=== PATIENT | male | born 1950 | race African-American/Black ===

== ENCOUNTER 2020-12-17 04:20 | Day surgery (SDC) | payer OTHER ==
[2020-12-15 11:11] VITALS: BMI 28.5
[~2020-12-17 04:20] MED LIST: LIDOCAINE HCL 0.5% EPINEPHRINE 1:200,000 50 ML VIAL IJ ONE
[2020-12-17] MEDS ORDERED: LIDOCAINE HCL 1%, 10 MG/ML (20ML VIAL) ONE (07:18)
[2020-12-17] MEDS ORDERED: LIDOCAINE HCL/PF 1% SDV 5ML VIAL ONE (07:20)
[2020-12-17] MEDS ORDERED: PROPOFOL 20 ML ONE (07:30)
[2020-12-17] MEDS ORDERED: MIDAZOLAM HCL 2 MG/2 ML SINGLE DOSE VIAL ONE (07:30)
[2020-12-17] MEDS ORDERED: SUCCINYLCHOLINE CHLORIDE 200 MG/10 ML SYRINGE ONE (07:30)
[2020-12-17] MEDS ORDERED: ceFAZolin SODIUM 1 GM VIAL ONE (08:19)
[2020-12-17] MEDS ORDERED: ceFAZolin SODIUM 1 GM VIAL IVPB ONE (08:19)
[2020-12-17] MEDS ORDERED: LIDOCAINE HCL 0.5% EPINEPHRINE 1:200,000 50 ML VIAL IJ ONE (08:41)
[2020-12-17 11:09] VITALS: BP 166/64; PULSE 89; TEMP 97.7
[2020-12-17] MEDS ORDERED: ACETAMINOPHEN 325 MG TABLET (FP) PO PRN (11:15)
[2020-12-17] MEDS ORDERED: ONDANSETRON 4 MG/2 ML VIAL IVPUSH PRN (11:15)
[2020-12-17] MEDS ORDERED: LACTATED RINGERS SOLUTION 1,000 ML IV SCH (11:15)
[2020-12-17] MEDS ORDERED: oxyCODONE HCL 5 MG TABLET PO PRN (11:15)
== END 2020-12-17 11:08 | disposition home or self-care (01) ==
LOC: JASU-SURG 04:20
PROVIDERS: ATTEND Surgery
PROC: 0JB70ZZ Excision of Back Subcutaneous Tissue and Fascia, Open Approach (ICD-10-PCS; principal; 2020-12-17 08:00)
DX: L72.3 Sebaceous cyst (principal)
CPT/HCPCS: 88304-TC

== ENCOUNTER 2021-07-28 12:58 | Emergency (ER) | payer OTHER ==
[2021-07-28 13:10] VITALS: TEMP 99.5; BMI 28.8
[2021-07-28] MEDS ORDERED: methylPREDNISolone NA SUCC 40 MG/1 ML VIAL IVPUSH ONE (14:28)
[2021-07-28] MEDS ORDERED: methylPREDNISolone NA SUCC 40 MG/1 ML VIAL ONE ×2 (14:34→14:36)
[2021-07-28] MEDS ORDERED: ALBUTEROL SO4 2.5/IPRATROPIUM 0.5 INH SOL 3 ML VIAL.NEB. NEB ONE (14:34)
[2021-07-28] MEDS: ALBUTEROL SO4 2.5/IPRATROPIUM 0.5 INH SOL 3 ML VIAL.NEB. NEB SCH ×2 (15:00→15:34)
[2021-07-28 15:21] LABS: BASO % 0.3 % (0-2.0); EOS % 0.1 % (0-4.5); HEMATOCRIT 34.9 % (35.4-49); HEMOGLOBIN 11.7 GM/dL (11.7-16.9); LYMPH % 9.3 % (8-40); MCH 31.8 pg (25.7-33.7); MCHC 33.5 g/dl (32.0-35.9); MEAN PLT VOLUME 8.2 fl (7.5-11.1); MONO % 4.6 % (3.8-10.2); NEUT % 85.7 % (42.8-82.8); PLATELET COUNT 252 10^3/uL (134-434); RBC 3.67 M/mm3 (4.00-5.60); RDW 15.3 % (11.9-15.9); WHITE BLOOD COUNT 16.5 K/mm3 (4.0-10.0)
[2021-07-28 15:29] LABS: INR 1.11 (0.83-1.09)
[2021-07-28 15:31] LABS: ACTIVATED PTT 26.8 SECONDS (25.2-36.5)
[2021-07-28 15:53] LABS: CALCIUM 9.6 mg/dL (8.5-10.1)
[2021-07-28 15:54] LABS: ALBUMIN 3.6 g/dl (3.4-5.0); MAGNESIUM 2.2 mg/dL (1.8-2.4)
[2021-07-28 15:57] LABS: CREATININE 1.2 mg/dL (0.55-1.3)
[2021-07-28 15:58] LABS: BILIRUBIN,TOTAL 0.5 mg/dL (0.2-1); TOT PROT 7.6 g/dl (6.4-8.2)
[2021-07-28 16:13] LABS: BLOOD UREA NITROGEN 16.6 mg/dL (7-18)
[2021-07-28 18:32] VITALS: BP 136/70; PULSE 92
== END 2021-07-28 18:32 | disposition home or self-care (01) ==
LOC: JER 12:58
PROC: 3E033GC Introduction of Other Therapeutic Substance into Peripheral Vein, Percutaneous Approach (ICD-10-PCS; principal; 2021-07-28)
PROC: 3E0F7GC Introduction of Other Therapeutic Substance into Respiratory Tract, Via Natural or Artificial Opening (ICD-10-PCS; 2021-07-28)
DX: R05.9 Cough, unspecified (principal)
CPT/HCPCS: 36415; 71045-TC-FY; 71275-TC; 80053; 82550; 82553; 83735; 84484; 85025; 85610; 85730; 87804; 87807; 93005; 93010; 99285-25; C9803; Q9967; U0003; U0005

== ENCOUNTER 2021-07-30 11:57 | Inpatient (IN) | payer OTHER ==
[2021-07-30 12:23] VITALS: BMI 28.8
[2021-07-30 13:14] LABS: BASO % 0.6 % (0-2.0); EOS % 0.2 % (0-4.5); HEMATOCRIT 32.7 % (35.4-49); HEMOGLOBIN 10.8 GM/dL (11.7-16.9); LYMPH % 8.7 % (8-40); MCH 31.7 pg (25.7-33.7); MCHC 33.1 g/dl (32.0-35.9); MEAN CELL VOLUME 95.7 fl (80-96); MEAN PLT VOLUME 8.3 fl (7.5-11.1); MONO % 3.5 % (3.8-10.2); PLATELET COUNT 248 10^3/uL (134-434); RBC 3.42 M/mm3 (4.00-5.60); RDW 15.6 % (11.9-15.9)
[2021-07-30 13:29] LABS: CHLORIDE 110 mmol/L (98-107); SODIUM 143 mmol/L (136-145)
[2021-07-30] MEDS ORDERED: methylPREDNISolone NA SUCC 125 MG/2 ML VIAL IVPUSH ONE (13:30)
[2021-07-30] MEDS ORDERED: ALBUTEROL SO4 HFA INHALER IH ONE ×2 (13:30→15:44)
[2021-07-30 13:31] LABS: CALCIUM 9.5 mg/dL (8.5-10.1)
[2021-07-30 13:32] LABS: ALBUMIN 3.3 g/dl (3.4-5.0); ANION GAP 8 MMOL/L (8-16); BLOOD UREA NITROGEN 35.8 mg/dL (7-18); CO2 24 mmol/L (21-32); GLUCOSE,RANDOM 141 mg/dL (74-106)
[2021-07-30 13:35] LABS: CREATININE 1.3 mg/dL (0.55-1.3); SGOT/AST 15 U/L (15-37); SGPT/ALT 22 U/L (13-61)
[2021-07-30 13:36] LABS: BILIRUBIN,TOTAL 0.2 mg/dL (0.2-1); TOT PROT 7.7 g/dl (6.4-8.2)
[2021-07-30 13:38] LABS: ALK PHOS 83 U/L (45-117)
[2021-07-30] MEDS ORDERED: ASPIRIN 81 MG CHEWABLE TABLETS PO ONE (14:18)
[2021-07-30] MEDS ORDERED: methylPREDNISolone NA SUCC 125 MG/2 ML VIAL ONE (15:44)
[2021-07-30] MEDS ORDERED: ASPIRIN 81 MG CHEWABLE TABLETS ONE (15:44)
[2021-07-30] MEDS ORDERED: ATORVASTATIN CA 10 MG TABLET (FP) ONE (23:10)
[2021-07-30] MEDS ORDERED: hydrALAZINE HCL 25 MG TABLET (FP) ONE (23:10)
[2021-07-30] MEDS ORDERED: TAMSULOSIN HCL 0.4 MG CAP ONE (23:10)
[2021-07-30] MEDS ORDERED: MONTELUKAST NA 10 MG TABLET ONE (23:10)
[2021-07-30] MEDS: hydrALAZINE HCL 25 MG TABLET (FP) PO SCH (23:29)
[2021-07-30] MEDS: ATORVASTATIN CA 10 MG TABLET (FP) PO SCH (23:29)
[2021-07-30] MEDS: MONTELUKAST NA 10 MG TABLET PO SCH (23:29)
[2021-07-30] MEDS: TAMSULOSIN HCL 0.4 MG CAP PO SCH (23:29)
[2021-07-31 00:53] LABS: CHOLESTEROL 157 mg/dL (50-200); TRIGLYCERIDES 123 mg/dL (0-150)
[2021-07-31 00:54] LABS: LDL CHOLESTEROL (ONLY SJRH) 69 mg/dL (5-100)
[2021-07-31 00:55] LABS: HDL CHOLESTEROL 61 mg/dL (40-60)
[2021-07-31 00:57] LABS: N-TERMINAL BNP 81.9 pg/ml (5-125)
[2021-07-31 08:55] LABS: BASO % 0.4 % (0-2.0); EOS % 0.1 % (0-4.5); HEMATOCRIT 29.8 % (35.4-49); HEMOGLOBIN 10.2 GM/dL (11.7-16.9); LYMPH % 28.4 % (8-40); MCH 32.6 pg (25.7-33.7); MCHC 34.1 g/dl (32.0-35.9); MEAN CELL VOLUME 95.7 fl (80-96); MEAN PLT VOLUME 8.1 fl (7.5-11.1); MONO % 11.4 % (3.8-10.2); NEUT % 59.7 % (42.8-82.8); PLATELET COUNT 251 10^3/uL (134-434); RBC 3.12 M/mm3 (4.00-5.60); WHITE BLOOD COUNT 9.6 K/mm3 (4.0-10.0)
[2021-07-31 09:09] LABS: CHLORIDE 107 mmol/L (98-107); SODIUM 141 mmol/L (136-145)
[2021-07-31 09:12] LABS: CALCIUM 9.4 mg/dL (8.5-10.1)
[2021-07-31 09:13] LABS: ANION GAP 6 MMOL/L (8-16); BLOOD UREA NITROGEN 29.8 mg/dL (7-18); CO2 28 mmol/L (21-32); GLUCOSE,RANDOM 88 mg/dL (74-106)
[2021-07-31 09:16] LABS: CREATININE 1.1 mg/dL (0.55-1.3); SGOT/AST 15 U/L (15-37); SGPT/ALT 20 U/L (13-61)
[2021-07-31 09:17] LABS: BILIRUBIN,TOTAL 0.2 mg/dL (0.2-1)
[2021-07-31 09:18] LABS: TOT PROT 7.1 g/dl (6.4-8.2)
[2021-07-31 09:19] LABS: ALK PHOS 68 U/L (45-117)
[2021-07-31 09:57] LABS: TRIGLYCERIDES 107 mg/dL (0-150)
[2021-07-31] MEDS ORDERED: amLODIPine BESYLATE 5 MG TABLET (FP) ONE (11:19)
[2021-07-31] MEDS ORDERED: hydrALAZINE HCL 25 MG TABLET (FP) ONE (11:19)
[2021-07-31] MEDS ORDERED: ASPIRIN 81 MG CHEWABLE TABLETS ONE (11:19)
[2021-07-31] MEDS ORDERED: ISOSORBIDE MONONITRATE 60 MG TAB.SR.24H (FP) PO ONE (11:20)
[2021-07-31] MEDS ORDERED: SPIRONOLACTONE 25 MG TABLET ONE (11:20)
[2021-07-31] MEDS ORDERED: TAMSULOSIN HCL 0.4 MG CAP ONE (11:20)
[2021-07-31] MEDS ORDERED: CLOPIDOGREL BISULFATE 75 MG TABLET (FP) ONE (11:20)
[2021-07-31] MEDS ORDERED: ENOXAPARIN NA (PORCINE) 40 MG/0.4 ML DISP.SYRIN SQ ONE (11:21)
[2021-07-31] MEDS: SPIRONOLACTONE 25 MG TABLET PO SCH (11:35)
[2021-07-31] MEDS: TAMSULOSIN HCL 0.4 MG CAP PO SCH ×2 (11:35→21:48)
[2021-07-31] MEDS: ENOXAPARIN NA (PORCINE) 40 MG/0.4 ML DISP.SYRIN SQ SCH (11:35)
[2021-07-31] MEDS: ASPIRIN 81 MG CHEWABLE TABLETS PO SCH (11:35)
[2021-07-31] MEDS: amLODIPine BESYLATE 5 MG TABLET (FP) PO SCH (11:35)
[2021-07-31] MEDS: ISOSORBIDE MONONITRATE 60 MG TAB.SR.24H (FP) PO SCH (11:35)
[2021-07-31] MEDS: hydrALAZINE HCL 25 MG TABLET (FP) PO SCH ×2 (11:35→21:48)
[2021-07-31] MEDS: CLOPIDOGREL BISULFATE 75 MG TABLET (FP) PO SCH (11:36)
[2021-07-31] MEDS: BUDESONIDE/FORMETEROL FUMARATE 160/4.5 mcg INHALER IH SCH ×2 (11:37→22:16)
[2021-07-31] MEDS: methylPREDNISolone NA SUCC 40 MG/1 ML VIAL IVPUSH SCH ×2 (13:20→21:48)
[2021-07-31] MEDS ORDERED: cefTRIAXone SODIUM 1 GM VIAL ONE (13:33)
[2021-07-31] MEDS ORDERED: DEXTROSE 5%-WATER - 50 ML IVPB ONE (13:34)
[2021-07-31] MEDS: AZITHROMYCIN IVPB 500 MG/250 ML BAG IVPB SCH (13:40)
[2021-07-31] MEDS: CEFTRIAXONE 1 GM in DEXTROSE 5%-WATER - 50 ML IVPB SCH (15:20)
[2021-07-31] MEDS: NICOTINE 21 MG/24 HOURS TOPICAL PATCH TD SCH (21:47)
[2021-07-31] MEDS: ATORVASTATIN CA 10 MG TABLET (FP) PO SCH (21:48)
[2021-07-31] MEDS: MONTELUKAST NA 10 MG TABLET PO SCH (21:48)
[2021-08-01 07:09] LABS: HEMOGLOBIN 9.1 GM/dL (11.7-16.9); MCH 32.4 pg (25.7-33.7); MCHC 33.6 g/dl (32.0-35.9); MEAN CELL VOLUME 96.4 fl (80-96); MEAN PLT VOLUME 8.6 fl (7.5-11.1); PLATELET COUNT 234 10^3/uL (134-434); RDW 15.1 % (11.9-15.9); WHITE BLOOD COUNT 7.8 K/mm3 (4.0-10.0)
[2021-08-01 07:34] LABS: BLOOD UREA NITROGEN 27.1 mg/dL (7-18); CALCIUM 8.2 mg/dL (8.5-10.1)
[2021-08-01 07:35] LABS: ALBUMIN 2.5 g/dl (3.4-5.0); CREATININE 0.9 mg/dL (0.55-1.3)
[2021-08-01 07:37] LABS: TOT PROT 6.1 g/dl (6.4-8.2)
[2021-08-01 08:08] LABS: BILIRUBIN,TOTAL 0.1 mg/dL (0.2-1)
[2021-08-01] MEDS ORDERED: cefTRIAXone SODIUM 1 GM VIAL ONE ×2 (08:53→09:03)
[2021-08-01] MEDS ORDERED: PT OWN MED DRAWER 7, Y5N ONE (08:53)
[2021-08-01] MEDS ORDERED: DEXTROSE 5%-WATER - 50 ML IVPB ONE (08:54)
[2021-08-01 08:58] LABS: ANISOCYTOSIS 1+; MACROCYTOSIS 0; OVALOCYTE 1+; PLATELET ESTIMATE NORMAL
[2021-08-01] MEDS: amLODIPine BESYLATE 5 MG TABLET (FP) PO SCH (09:23)
[2021-08-01] MEDS: methylPREDNISolone NA SUCC 40 MG/1 ML VIAL IVPUSH SCH ×2 (09:23→18:53)
[2021-08-01] MEDS: ISOSORBIDE MONONITRATE 60 MG TAB.SR.24H (FP) PO SCH (09:23)
[2021-08-01] MEDS: CLOPIDOGREL BISULFATE 75 MG TABLET (FP) PO SCH (09:24)
[2021-08-01] MEDS: SPIRONOLACTONE 25 MG TABLET PO SCH (09:24)
[2021-08-01] MEDS: ASPIRIN 81 MG CHEWABLE TABLETS PO SCH (09:24)
[2021-08-01] MEDS: TAMSULOSIN HCL 0.4 MG CAP PO SCH ×2 (09:24→21:09)
[2021-08-01] MEDS: ENOXAPARIN NA (PORCINE) 40 MG/0.4 ML DISP.SYRIN SQ SCH (09:24)
[2021-08-01] MEDS: NICOTINE 21 MG/24 HOURS TOPICAL PATCH TD SCH (09:24)
[2021-08-01] MEDS: hydrALAZINE HCL 25 MG TABLET (FP) PO SCH ×2 (09:24→21:09)
[2021-08-01] MEDS: BUDESONIDE/FORMETEROL FUMARATE 160/4.5 mcg INHALER IH SCH ×2 (09:25→21:09)
[2021-08-01] MEDS: AZITHROMYCIN IVPB 500 MG/250 ML BAG IVPB SCH (11:32)
[2021-08-01] MEDS: CEFTRIAXONE 1 GM in DEXTROSE 5%-WATER - 50 ML IVPB SCH (11:33)
[2021-08-01] MEDS: ALBUTEROL SO4 2.5/IPRATROPIUM 0.5 INH SOL 3 ML VIAL.NEB. NEB SCH (20:15)
[2021-08-01] MEDS: MONTELUKAST NA 10 MG TABLET PO SCH (21:09)
[2021-08-01] MEDS: ATORVASTATIN CA 10 MG TABLET (FP) PO SCH (21:09)
[2021-08-02] MEDS: BICALUTAMIDE 50 MG TABLET (FP) PO SCH ×2 (00:19→00:35)
[2021-08-02] MEDS: methylPREDNISolone NA SUCC 40 MG/1 ML VIAL IVPUSH SCH ×3 (02:34→18:27)
[2021-08-02] MEDS: ALBUTEROL SO4 2.5/IPRATROPIUM 0.5 INH SOL 3 ML VIAL.NEB. NEB SCH ×3 (07:45→20:48)
[2021-08-02] MEDS: ASPIRIN 81 MG CHEWABLE TABLETS PO SCH (09:41)
[2021-08-02] MEDS: TAMSULOSIN HCL 0.4 MG CAP PO SCH ×2 (09:41→21:17)
[2021-08-02] MEDS: SPIRONOLACTONE 25 MG TABLET PO SCH (09:41)
[2021-08-02] MEDS: hydrALAZINE HCL 25 MG TABLET (FP) PO SCH ×2 (09:41→21:17)
[2021-08-02] MEDS: ISOSORBIDE MONONITRATE 60 MG TAB.SR.24H (FP) PO SCH (09:42)
[2021-08-02] MEDS: ENOXAPARIN NA (PORCINE) 40 MG/0.4 ML DISP.SYRIN SQ SCH (09:42)
[2021-08-02] MEDS: BUDESONIDE/FORMETEROL FUMARATE 160/4.5 mcg INHALER IH SCH ×2 (09:43→21:17)
[2021-08-02] MEDS: CLOPIDOGREL BISULFATE 75 MG TABLET (FP) PO SCH (09:43)
[2021-08-02] MEDS: amLODIPine BESYLATE 5 MG TABLET (FP) PO SCH (09:43)
[2021-08-02] MEDS: NICOTINE 21 MG/24 HOURS TOPICAL PATCH TD SCH (09:43)
[2021-08-02] MEDS: AZITHROMYCIN IVPB 500 MG/250 ML BAG IVPB SCH (09:44)
[2021-08-02] MEDS: ENZALUTAMIDE 40 MG TABLET PO SCH (12:35)
[2021-08-02] MEDS: MONTELUKAST NA 10 MG TABLET PO SCH (21:17)
[2021-08-02] MEDS: ATORVASTATIN CA 10 MG TABLET (FP) PO SCH (21:17)
[2021-08-03] MEDS: methylPREDNISolone NA SUCC 40 MG/1 ML VIAL IVPUSH SCH ×3 (02:50→18:12)
[2021-08-03 07:24] LABS: HEMATOCRIT 22.3 % (35.4-49); HEMOGLOBIN 7.3 GM/dL (11.7-16.9); MCHC 32.7 g/dl (32.0-35.9); MEAN CELL VOLUME 94.8 fl (80-96); MEAN PLT VOLUME 8.2 fl (7.5-11.1); PLATELET COUNT 267 10^3/uL (134-434); RBC 2.35 M/mm3 (4.00-5.60); RDW 14.9 % (11.9-15.9); WHITE BLOOD COUNT 13.4 K/mm3 (4.0-10.0)
[2021-08-03] MEDS: ALBUTEROL SO4 2.5/IPRATROPIUM 0.5 INH SOL 3 ML VIAL.NEB. NEB SCH ×4 (07:41→23:48)
[2021-08-03 07:52] LABS: CALCIUM 8.5 mg/dL (8.5-10.1)
[2021-08-03 07:53] LABS: ALBUMIN 2.7 g/dl (3.4-5.0); BLOOD UREA NITROGEN 23.7 mg/dL (7-18)
[2021-08-03 07:59] LABS: BILIRUBIN,TOTAL 0.5 mg/dL (0.2-1)
[2021-08-03 08:43] LABS: ANISOCYTOSIS 2+; MACROCYTOSIS 0; PLATELET ESTIMATE NORMAL
[2021-08-03] MEDS ORDERED: REGADENOSON 0.4 MG/5 ML PRE-FILLED SYRINGE IVPUSH ONE (10:45)
[2021-08-03] MEDS: ENOXAPARIN NA (PORCINE) 40 MG/0.4 ML DISP.SYRIN SQ SCH (10:57)
[2021-08-03] MEDS: NICOTINE 21 MG/24 HOURS TOPICAL PATCH TD SCH (10:57)
[2021-08-03] MEDS: ISOSORBIDE MONONITRATE 60 MG TAB.SR.24H (FP) PO SCH (10:57)
[2021-08-03] MEDS: amLODIPine BESYLATE 5 MG TABLET (FP) PO SCH (10:58)
[2021-08-03] MEDS: CLOPIDOGREL BISULFATE 75 MG TABLET (FP) PO SCH (10:58)
[2021-08-03] MEDS: TAMSULOSIN HCL 0.4 MG CAP PO SCH ×2 (10:58→21:17)
[2021-08-03] MEDS: ASPIRIN 81 MG CHEWABLE TABLETS PO SCH (10:58)
[2021-08-03] MEDS: hydrALAZINE HCL 25 MG TABLET (FP) PO SCH ×2 (10:58→21:17)
[2021-08-03] MEDS: SPIRONOLACTONE 25 MG TABLET PO SCH (10:58)
[2021-08-03] MEDS: BUDESONIDE/FORMETEROL FUMARATE 160/4.5 mcg INHALER IH SCH ×2 (11:21→21:28)
[2021-08-03] MEDS: AZITHROMYCIN IVPB 500 MG/250 ML BAG IVPB SCH (11:21)
[2021-08-03] MEDS: ENZALUTAMIDE 40 MG TABLET PO SCH (12:58)
[2021-08-03] MEDS: ATORVASTATIN CA 10 MG TABLET (FP) PO SCH (21:17)
[2021-08-03] MEDS: MONTELUKAST NA 10 MG TABLET PO SCH (21:17)
[2021-08-04] MEDS: methylPREDNISolone NA SUCC 40 MG/1 ML VIAL IVPUSH SCH ×3 (01:17→18:08)
[2021-08-04] MEDS: ALBUTEROL SO4 2.5/IPRATROPIUM 0.5 INH SOL 3 ML VIAL.NEB. NEB SCH ×2 (07:40→20:07)
[2021-08-04 08:23] LABS: ALBUMIN 2.7 g/dl (3.4-5.0); CALCIUM 9.2 mg/dL (8.5-10.1)
[2021-08-04 08:24] LABS: BLOOD UREA NITROGEN 24.7 mg/dL (7-18)
[2021-08-04 08:27] LABS: CREATININE 0.9 mg/dL (0.55-1.3); HEMATOCRIT 22.4 % (35.4-49); HEMOGLOBIN 7.6 GM/dL (11.7-16.9); MCH 31.9 pg (25.7-33.7); MEAN CELL VOLUME 93.8 fl (80-96); MEAN PLT VOLUME 8.1 fl (7.5-11.1); PLATELET COUNT 269 10^3/uL (134-434); RBC 2.39 M/mm3 (4.00-5.60); RDW 15.4 % (11.9-15.9); WHITE BLOOD COUNT 10.1 K/mm3 (4.0-10.0)
[2021-08-04 08:28] LABS: TOT PROT 6.1 g/dl (6.4-8.2)
[2021-08-04] MEDS ORDERED: PANTOPRAZOLE SODIUM 80 MG in SODIUM CHLORIDE 100 ML IVPB SCH (09:15)
[2021-08-04] MEDS: ISOSORBIDE MONONITRATE 60 MG TAB.SR.24H (FP) PO SCH (09:22)
[2021-08-04] MEDS: SPIRONOLACTONE 25 MG TABLET PO SCH (09:22)
[2021-08-04] MEDS: TAMSULOSIN HCL 0.4 MG CAP PO SCH ×2 (09:22→22:32)
[2021-08-04] MEDS: hydrALAZINE HCL 25 MG TABLET (FP) PO SCH ×2 (09:22→22:33)
[2021-08-04] MEDS: amLODIPine BESYLATE 5 MG TABLET (FP) PO SCH (09:22)
[2021-08-04] MEDS: NICOTINE 21 MG/24 HOURS TOPICAL PATCH TD SCH (09:22)
[2021-08-04] MEDS: AZITHROMYCIN IVPB 500 MG/250 ML BAG IVPB SCH (09:23)
[2021-08-04] MEDS: BUDESONIDE/FORMETEROL FUMARATE 160/4.5 mcg INHALER IH SCH (09:23)
[2021-08-04 09:46] LABS: ANISOCYTOSIS 2+; CORRECTED WBC 8.02 K/mm3; MACROCYTOSIS 1+; OVALOCYTE 1+; PLATELET ESTIMATE NORMAL; TARGET CELLS 1+
[2021-08-04] MEDS: ENZALUTAMIDE 40 MG TABLET PO SCH (10:54)
[2021-08-04] MEDS: PANTOPRAZOLE SODIUM 160 MG in SODIUM CHLORIDE 290 ML IVPB SCH (11:00)
[2021-08-04 17:04] LABS: BASO % 0.4 % (0-2.0); HEMATOCRIT 21.7 % (35.4-49); HEMOGLOBIN 7.2 GM/dL (11.7-16.9); LYMPH % 23.3 % (8-40); MCH 31.1 pg (25.7-33.7); MCHC 33.1 g/dl (32.0-35.9); MEAN CELL VOLUME 93.9 fl (80-96); MEAN PLT VOLUME 7.9 fl (7.5-11.1); MONO % 6.1 % (3.8-10.2); NEUT % 70.2 % (42.8-82.8); PLATELET COUNT 281 10^3/uL (134-434); RBC 2.31 M/mm3 (4.00-5.60); RDW 16.1 % (11.9-15.9)
[2021-08-04 17:33] LABS: ANISOCYTOSIS 2+; MACROCYTOSIS 0; PLATELET ESTIMATE NORMAL; TARGET CELLS 1+
[2021-08-04] MEDS: ATORVASTATIN CA 10 MG TABLET (FP) PO SCH (22:32)
[2021-08-04] MEDS: MONTELUKAST NA 10 MG TABLET PO SCH (22:33)
[2021-08-05] MEDS: methylPREDNISolone NA SUCC 40 MG/1 ML VIAL IVPUSH SCH ×3 (02:00→17:26)
[2021-08-05] MEDS: BUDESONIDE/FORMETEROL FUMARATE 160/4.5 mcg INHALER IH SCH ×3 (06:29→21:09)
[2021-08-05] MEDS: ALBUTEROL SO4 2.5/IPRATROPIUM 0.5 INH SOL 3 ML VIAL.NEB. NEB SCH ×3 (07:30→20:21)
[2021-08-05 08:38] LABS: HEMOGLOBIN 8.8 GM/dL (11.7-16.9); MCH 31.3 pg (25.7-33.7); MCHC 33.7 g/dl (32.0-35.9); MEAN CELL VOLUME 92.7 fl (80-96); MEAN PLT VOLUME 8.2 fl (7.5-11.1); PLATELET COUNT 302 10^3/uL (134-434); RDW 16.4 % (11.9-15.9); WHITE BLOOD COUNT 10.8 K/mm3 (4.0-10.0)
[2021-08-05 09:02] LABS: CALCIUM 8.6 mg/dL (8.5-10.1)
[2021-08-05 09:03] LABS: ALBUMIN 2.8 g/dl (3.4-5.0); BLOOD UREA NITROGEN 23.4 mg/dL (7-18)
[2021-08-05 09:06] LABS: BILIRUBIN,TOTAL 0.4 mg/dL (0.2-1); CREATININE 0.9 mg/dL (0.55-1.3)
[2021-08-05 09:37] LABS: ANISOCYTOSIS 0; MACROCYTOSIS 1+; PLATELET ESTIMATE NORMAL
[2021-08-05] MEDS: amLODIPine BESYLATE 5 MG TABLET (FP) PO SCH (10:02)
[2021-08-05] MEDS: AZITHROMYCIN IVPB 500 MG/250 ML BAG IVPB SCH (10:02)
[2021-08-05] MEDS: TAMSULOSIN HCL 0.4 MG CAP PO SCH ×2 (10:02→21:04)
[2021-08-05] MEDS: hydrALAZINE HCL 25 MG TABLET (FP) PO SCH ×2 (10:02→21:04)
[2021-08-05] MEDS: NICOTINE 21 MG/24 HOURS TOPICAL PATCH TD SCH (10:02)
[2021-08-05] MEDS: ISOSORBIDE MONONITRATE 60 MG TAB.SR.24H (FP) PO SCH (10:02)
[2021-08-05] MEDS: SPIRONOLACTONE 25 MG TABLET PO SCH (10:02)
[2021-08-05] MEDS: ENZALUTAMIDE 40 MG TABLET PO SCH (10:03)
[2021-08-05] MEDS: LISINOPRIL 5 MG TABLET PO SCH (10:03)
[2021-08-05] MEDS: PANTOPRAZOLE SODIUM 160 MG in SODIUM CHLORIDE 290 ML IVPB SCH (11:39)
[2021-08-05] MEDS: ATORVASTATIN CA 10 MG TABLET (FP) PO SCH (21:04)
[2021-08-05] MEDS: MONTELUKAST NA 10 MG TABLET PO SCH (21:04)
[2021-08-06] MEDS: methylPREDNISolone NA SUCC 40 MG/1 ML VIAL IVPUSH SCH ×3 (01:57→17:49)
[2021-08-06] MEDS: PANTOPRAZOLE SODIUM 160 MG in SODIUM CHLORIDE 290 ML IVPB SCH ×2 (01:57→22:54)
[2021-08-06 07:02] LABS: HEMATOCRIT 24.8 % (35.4-49); HEMOGLOBIN 8.3 GM/dL (11.7-16.9); MCH 31.2 pg (25.7-33.7); MCHC 33.4 g/dl (32.0-35.9); MEAN CELL VOLUME 93.6 fl (80-96); PLATELET COUNT 330 10^3/uL (134-434); RBC 2.65 M/mm3 (4.00-5.60); RDW 17.4 % (11.9-15.9); WHITE BLOOD COUNT 12.5 K/mm3 (4.0-10.0)
[2021-08-06 07:28] LABS: ALBUMIN 2.8 g/dl (3.4-5.0); CALCIUM 7.9 mg/dL (8.5-10.1)
[2021-08-06 07:29] LABS: BLOOD UREA NITROGEN 23.9 mg/dL (7-18)
[2021-08-06 07:31] LABS: CREATININE 0.9 mg/dL (0.55-1.3)
[2021-08-06 07:33] LABS: BILIRUBIN,TOTAL 0.1 mg/dL (0.2-1)
[2021-08-06] MEDS ORDERED: PT OWN MED DRAWER 7, Y5N ONE ×2 (07:44→10:39)
[2021-08-06] MEDS: ALBUTEROL SO4 2.5/IPRATROPIUM 0.5 INH SOL 3 ML VIAL.NEB. NEB SCH ×2 (08:21→16:04)
[2021-08-06 08:50] LABS: ANISOCYTOSIS 2+; MACROCYTOSIS 0; PLATELET ESTIMATE NORMAL
[2021-08-06] MEDS: NICOTINE 21 MG/24 HOURS TOPICAL PATCH TD SCH (10:51)
[2021-08-06] MEDS: amLODIPine BESYLATE 5 MG TABLET (FP) PO SCH (10:51)
[2021-08-06] MEDS: SPIRONOLACTONE 25 MG TABLET PO SCH (10:51)
[2021-08-06] MEDS: ENZALUTAMIDE 40 MG TABLET PO SCH (10:51)
[2021-08-06] MEDS: LISINOPRIL 5 MG TABLET PO SCH (10:51)
[2021-08-06] MEDS: TAMSULOSIN HCL 0.4 MG CAP PO SCH ×2 (10:51→21:07)
[2021-08-06] MEDS: ISOSORBIDE MONONITRATE 60 MG TAB.SR.24H (FP) PO SCH (10:51)
[2021-08-06] MEDS: hydrALAZINE HCL 25 MG TABLET (FP) PO SCH ×2 (10:51→21:06)
[2021-08-06] MEDS: BUDESONIDE/FORMETEROL FUMARATE 160/4.5 mcg INHALER IH SCH ×2 (10:52→21:13)
[2021-08-06] MEDS: AZITHROMYCIN IVPB 500 MG/250 ML BAG IVPB SCH (10:52)
[2021-08-06] MEDS: ATORVASTATIN CA 10 MG TABLET (FP) PO SCH (21:06)
[2021-08-06] MEDS: MONTELUKAST NA 10 MG TABLET PO SCH (21:06)
[2021-08-07] MEDS: methylPREDNISolone NA SUCC 40 MG/1 ML VIAL IVPUSH SCH ×3 (01:40→21:47)
[2021-08-07 07:16] LABS: BASO % 0.8 % (0-2.0); EOS % 0.1 % (0-4.5); HEMATOCRIT 25.8 % (35.4-49); HEMOGLOBIN 8.5 GM/dL (11.7-16.9); LYMPH % 16.8 % (8-40); MEAN CELL VOLUME 93.9 fl (80-96); MEAN PLT VOLUME 7.9 fl (7.5-11.1); MONO % 2.8 % (3.8-10.2); NEUT % 79.5 % (42.8-82.8); PLATELET COUNT 342 10^3/uL (134-434); RBC 2.75 M/mm3 (4.00-5.60); RDW 17.4 % (11.9-15.9); WHITE BLOOD COUNT 14.8 K/mm3 (4.0-10.0)
[2021-08-07 08:14] LABS: CALCIUM 8.2 mg/dL (8.5-10.1)
[2021-08-07 08:15] LABS: BLOOD UREA NITROGEN 19.4 mg/dL (7-18)
[2021-08-07 08:17] LABS: ALBUMIN 2.8 g/dl (3.4-5.0); CREATININE 0.9 mg/dL (0.55-1.3)
[2021-08-07 08:19] LABS: BILIRUBIN,TOTAL 0.2 mg/dL (0.2-1); TOT PROT 6.3 g/dl (6.4-8.2)
[2021-08-07] MEDS: ISOSORBIDE MONONITRATE 60 MG TAB.SR.24H (FP) PO SCH (10:36)
[2021-08-07] MEDS: amLODIPine BESYLATE 5 MG TABLET (FP) PO SCH (10:36)
[2021-08-07] MEDS: TAMSULOSIN HCL 0.4 MG CAP PO SCH ×2 (10:36→21:47)
[2021-08-07] MEDS: SPIRONOLACTONE 25 MG TABLET PO SCH (10:36)
[2021-08-07] MEDS: LISINOPRIL 5 MG TABLET PO SCH (10:36)
[2021-08-07] MEDS: hydrALAZINE HCL 25 MG TABLET (FP) PO SCH ×2 (10:36→21:47)
[2021-08-07 10:37] LABS: ANISOCYTOSIS 1+; MACROCYTOSIS 0; OVALOCYTE 2+; PLATELET ESTIMATE NORMAL
[2021-08-07] MEDS: BUDESONIDE/FORMETEROL FUMARATE 160/4.5 mcg INHALER IH SCH ×2 (10:38→21:47)
[2021-08-07] MEDS: NICOTINE 21 MG/24 HOURS TOPICAL PATCH TD SCH (10:38)
[2021-08-07] MEDS: ENZALUTAMIDE 40 MG TABLET PO SCH (10:38)
[2021-08-07] MEDS: AZITHROMYCIN IVPB 500 MG/250 ML BAG IVPB SCH (10:38)
[2021-08-07] MEDS ORDERED: PT OWN MED DRAWER 7, Y5N ONE (21:05)
[2021-08-07] MEDS: MONTELUKAST NA 10 MG TABLET PO SCH (21:47)
[2021-08-07] MEDS: PANTOPRAZOLE 40 MG TABLET PO SCH (21:47)
[2021-08-07] MEDS: ATORVASTATIN CA 10 MG TABLET (FP) PO SCH (21:47)
[2021-08-08 07:06] LABS: BASO % 0.3 % (0-2.0); EOS % 0.1 % (0-4.5); HEMATOCRIT 24.6 % (35.4-49); HEMOGLOBIN 8.1 GM/dL (11.7-16.9); LYMPH % 19.8 % (8-40); MCH 31.1 pg (25.7-33.7); MCHC 32.9 g/dl (32.0-35.9); MEAN CELL VOLUME 94.5 fl (80-96); MEAN PLT VOLUME 8.2 fl (7.5-11.1); MONO % 4.3 % (3.8-10.2); NEUT % 75.5 % (42.8-82.8); PLATELET COUNT 367 10^3/uL (134-434); RBC 2.61 M/mm3 (4.00-5.60); RDW 16.9 % (11.9-15.9); WHITE BLOOD COUNT 12.4 K/mm3 (4.0-10.0)
[2021-08-08 07:30] LABS: CALCIUM 7.8 mg/dL (8.5-10.1)
[2021-08-08 07:31] LABS: ALBUMIN 2.6 g/dl (3.4-5.0); BLOOD UREA NITROGEN 19.3 mg/dL (7-18)
[2021-08-08 07:34] LABS: CREATININE 0.8 mg/dL (0.55-1.3)
[2021-08-08 07:36] LABS: BILIRUBIN,TOTAL 0.2 mg/dL (0.2-1); TOT PROT 5.6 g/dl (6.4-8.2)
[2021-08-08] MEDS ORDERED: REGADENOSON 0.4 MG/5 ML PRE-FILLED SYRINGE IVPUSH ONE ×2 (09:44→10:00)
[2021-08-08] MEDS: methylPREDNISolone NA SUCC 40 MG/1 ML VIAL IVPUSH SCH ×3 (10:00→21:54)
[2021-08-08] MEDS: SPIRONOLACTONE 25 MG TABLET PO SCH ×2 (10:00→12:00)
[2021-08-08] MEDS: hydrALAZINE HCL 25 MG TABLET (FP) PO SCH ×3 (10:00→21:53)
[2021-08-08] MEDS: ISOSORBIDE MONONITRATE 60 MG TAB.SR.24H (FP) PO SCH ×2 (10:00→11:57)
[2021-08-08] MEDS: NICOTINE 21 MG/24 HOURS TOPICAL PATCH TD SCH ×2 (10:00→11:58)
[2021-08-08] MEDS: LISINOPRIL 5 MG TABLET PO SCH ×2 (10:00→11:56)
[2021-08-08] MEDS: TAMSULOSIN HCL 0.4 MG CAP PO SCH ×3 (10:00→21:53)
[2021-08-08] MEDS: BUDESONIDE/FORMETEROL FUMARATE 160/4.5 mcg INHALER IH SCH ×3 (10:00→21:54)
[2021-08-08] MEDS: PANTOPRAZOLE 40 MG TABLET PO SCH ×3 (10:00→21:53)
[2021-08-08] MEDS: ENZALUTAMIDE 40 MG TABLET PO SCH ×2 (10:00→11:58)
[2021-08-08] MEDS: amLODIPine BESYLATE 5 MG TABLET (FP) PO SCH ×2 (10:00→11:57)
[2021-08-08] MEDS: ALBUTEROL SO4 2.5/IPRATROPIUM 0.5 INH SOL 3 ML VIAL.NEB. NEB SCH (21:30)
[2021-08-08] MEDS: ATORVASTATIN CA 10 MG TABLET (FP) PO SCH (21:53)
[2021-08-08] MEDS: MONTELUKAST NA 10 MG TABLET PO SCH (21:54)
[2021-08-09 07:28] LABS: ALBUMIN 2.7 g/dl (3.4-5.0)
[2021-08-09 07:31] LABS: CREATININE 0.9 mg/dL (0.55-1.3)
[2021-08-09 07:33] LABS: BILIRUBIN,TOTAL 0.6 mg/dL (0.2-1); TOT PROT 5.9 g/dl (6.4-8.2)
[2021-08-09 07:58] LABS: BASO % 0.4 % (0-2.0); EOS % 0.1 % (0-4.5); HEMATOCRIT 25.6 % (35.4-49); HEMOGLOBIN 8.4 GM/dL (11.7-16.9); MCH 31.1 pg (25.7-33.7); MCHC 32.7 g/dl (32.0-35.9); MEAN CELL VOLUME 95.2 fl (80-96); MEAN PLT VOLUME 7.8 fl (7.5-11.1); MONO % 4.5 % (3.8-10.2); PLATELET COUNT 385 10^3/uL (134-434); RBC 2.69 M/mm3 (4.00-5.60); RDW 16.9 % (11.9-15.9); WHITE BLOOD COUNT 9.7 K/mm3 (4.0-10.0)
[2021-08-09] MEDS: ALBUTEROL SO4 2.5/IPRATROPIUM 0.5 INH SOL 3 ML VIAL.NEB. NEB SCH ×3 (08:50→20:10)
[2021-08-09] MEDS: LISINOPRIL 5 MG TABLET PO SCH (09:27)
[2021-08-09] MEDS: hydrALAZINE HCL 25 MG TABLET (FP) PO SCH ×2 (09:27→21:10)
[2021-08-09] MEDS: NICOTINE 21 MG/24 HOURS TOPICAL PATCH TD SCH (09:27)
[2021-08-09] MEDS: amLODIPine BESYLATE 5 MG TABLET (FP) PO SCH (09:27)
[2021-08-09] MEDS: methylPREDNISolone NA SUCC 40 MG/1 ML VIAL IVPUSH SCH ×2 (09:27→21:11)
[2021-08-09] MEDS: PANTOPRAZOLE 40 MG TABLET PO SCH ×2 (09:27→21:10)
[2021-08-09] MEDS: BUDESONIDE/FORMETEROL FUMARATE 160/4.5 mcg INHALER IH SCH ×2 (09:28→21:42)
[2021-08-09] MEDS: ISOSORBIDE MONONITRATE 60 MG TAB.SR.24H (FP) PO SCH (09:28)
[2021-08-09] MEDS: SPIRONOLACTONE 25 MG TABLET PO SCH (09:28)
[2021-08-09] MEDS: TAMSULOSIN HCL 0.4 MG CAP PO SCH ×2 (09:28→21:10)
[2021-08-09] MEDS: ENZALUTAMIDE 40 MG TABLET PO SCH (09:28)
[2021-08-09] MEDS: ATORVASTATIN CA 10 MG TABLET (FP) PO SCH (21:10)
[2021-08-09] MEDS: MONTELUKAST NA 10 MG TABLET PO SCH (21:11)
[2021-08-10] MEDS: ALBUTEROL SO4 2.5/IPRATROPIUM 0.5 INH SOL 3 ML VIAL.NEB. NEB SCH ×2 (07:30→13:50)
[2021-08-10 10:21] VITALS: BP 130/70; PULSE 68; TEMP 98
[2021-08-10] MEDS: NICOTINE 21 MG/24 HOURS TOPICAL PATCH TD SCH (11:18)
[2021-08-10] MEDS: TAMSULOSIN HCL 0.4 MG CAP PO SCH (11:19)
[2021-08-10] MEDS: methylPREDNISolone NA SUCC 40 MG/1 ML VIAL IVPUSH SCH (11:19)
[2021-08-10] MEDS: hydrALAZINE HCL 25 MG TABLET (FP) PO SCH (11:19)
[2021-08-10] MEDS: ISOSORBIDE MONONITRATE 60 MG TAB.SR.24H (FP) PO SCH (11:19)
[2021-08-10] MEDS: SPIRONOLACTONE 25 MG TABLET PO SCH (11:19)
[2021-08-10] MEDS: PANTOPRAZOLE 40 MG TABLET PO SCH (11:19)
[2021-08-10] MEDS: LISINOPRIL 5 MG TABLET PO SCH (11:19)
[2021-08-10] MEDS: ENZALUTAMIDE 40 MG TABLET PO SCH (11:19)
[2021-08-10] MEDS: amLODIPine BESYLATE 5 MG TABLET (FP) PO SCH (11:22)
[2021-08-10] MEDS: BUDESONIDE/FORMETEROL FUMARATE 160/4.5 mcg INHALER IH SCH (11:29)
[2021-08-10] MEDS ORDERED: PT OWN MED DRAWER 7, Y5N ONE (13:27)
== END 2021-08-10 15:23 | DRG 191 ==
LOC: JER 11:57 → JERBED 14:15 → INTOOBSV 14:15 → UNDOADMOB 14:15 → J4W 07-31 12:02 → JERBED 07-31 12:12 → J4W 07-31 12:12 → OBSVTOIN 08-01 12:52 → J4W 08-04 09:22
PROVIDERS: ADMIT Internal Medicine; ATTEND Internal Medicine
DX: J44.1 Chronic obstructive pulmonary disease with (acute) exacerbation (principal); K92.2 Gastrointestinal hemorrhage, unspecified; I25.10 Atherosclerotic heart disease of native coronary artery without angina pectoris; C61 Malignant neoplasm of prostate; E78.5 Hyperlipidemia, unspecified; I10 Essential (primary) hypertension; E03.9 Hypothyroidism, unspecified; D64.9 Anemia, unspecified; R73.03 Prediabetes; Z85.118 Personal history of other malignant neoplasm of bronchus and lung
CPT/HCPCS: 36415; 36430; 36511; 71045-TC-FY; 74240-TC-FY; 78452-TC; 80053; 80061; 82272; 82550; 82553; 82607; 82728; 82746; 83010; 83036; 83540; 83550; 83615; 83880; 84439; 84443; 84478; 84484; 85025; 85045; 86850; 86900; 86901; 86922; 93005; 93010; 93017; 93306-TC; 94640; 99285-25; A9502; C9803; G0378; J2785; P9016; P9058; U0003; U0005

== ENCOUNTER → 2021-12-20 | Emergency (ER) | payer OTHER ==
[~2021-12-20] MED LIST changes: +CALCIUM CHLORIDE 1 GM/10 ML *DISP.SYRIN ONE; +EPINEPHrine 1:10,000 (P-F SYR) 1 MG/10 ML DISP.SYRIN ONE; -LIDOCAINE HCL 0.5% EPINEPHRINE 1:200,000 50 ML VIAL IJ ONE
[2021-12-20 11:38] VITALS: BP 0/0; PULSE 0; BMI 28.6
== END | disposition expired ==
LOC: JER 11:23
PROC: 5A12012 Performance of Cardiac Output, Single, Manual (ICD-10-PCS; principal; 2021-12-20)
DX: I46.9 Cardiac arrest, cause unspecified (principal)
CPT/HCPCS: 99291; 99292